=== PATIENT | male | born 1980 | race African-American/Black ===

== ENCOUNTER 2018-10-14 04:38 | Emergency (ER) | payer OTHER ==
[~2018-10-14] VITALS: Ht 185.4 cm; Wt 79.5 kg
[2018-10-14 04:48] VITALS: BP 158/88
== END 2018-10-14 05:07 | disposition home or self-care (01) ==
LOC: EMS 04:38
DX: I10 Essential (primary) hypertension (principal); Z02.89 Encounter for other administrative examinations